=== PATIENT | male | born 1960 | race Caucasian/White ===

== ENCOUNTER 2025-04-23 10:17 | Outpatient (CLI) | payer MEDICARE, MEDICAID ==
[2025-04-23 11:22] VITALS: PULSE 79; RESP 14; O2SAT 99
--- NOTE | 2025-04-23 15:28 | PROCEDURE NOTE - Respiratory ---
Procedure Note-Respiratory Providers to CC Copies To 1: LEONARDO AMBROSE MD Procedure Name: This is a spirometry study dated April 23, 2025. Spirometry measurements: The forced vital capacity is normal but the FEV1 is significantly reduced. The FEV1 ratio is also significantly reduced. All of the measured flow rates show reduction. Bronchodilator was not administered as part of the study. Conclusion: This study is abnormal. There is evidence for obstructive ventilatory defect in the moderately severe category. This indicates the diagnosis of smoking-related COPD. We have no previous studies for comparison. Regular daily use of bronchodilator medication may help this patient. Complete abstinence from cigarette smoking is recommended. NORMA LUGO MD Apr 23, 2025 15:28
== END 2025-04-23 23:59 | disposition home or self-care (01) ==
LOC: RT 10:17
PROVIDERS: ATTEND Family Medicine
DX: R06.02 Shortness of breath (principal); R06.2 Wheezing
CPT/HCPCS: 94010; 94760

== ENCOUNTER 2025-06-02 07:24 | Day surgery (SDC) | payer MEDICARE, MEDICAID ==
[2025-06-02] VITALS (8 sets, daily range): BP systolic 83–129; BP diastolic 51–86; PULSE 61–76; RESP 12–18; TEMP 96.4; O2SAT 97–100
[~2025-06-02] VITALS: Ht 172.7 cm; Wt 61.3 kg
[~2025-06-02 07:24] MED LIST: ACLI400A2 INH; ATEN25TA2 PO; CARV12.549 PO; DOCUMENT DATE & TIME OF BETA-BLOCKER PO ONE; LIDOcaine 2% Viscous 15ml cup MM ONE; LISI20TA28 PO; METH-375 PO; TRAZ-256 PO; simethicone 40mg/0.6ml oral drops 15ml PO ONE
[2025-06-02] MEDS: ringers solution, lacted 1,000 ML IV SCH (08:04)
[2025-06-02] MEDS ORDERED: LIDOcaine 2% Viscous 15ml cup ONE (08:35)
[2025-06-02] MEDS ORDERED: MIDAZolam 1 MG/ML 5ML VIAL ONE (09:09)
[2025-06-02] MEDS ORDERED: fentaNYL/PF 50MCG/1 ML 2ML syringe ONE (09:09)
--- NOTE | 2025-06-03 16:07 | PATHOLOGY REPORT ---
[facility] [address] [place] [address] SURGICAL PATHOLOGY REPORT CaseNumber: [id number] Surgeon:Sharmin Matson M.D. CLINICAL INFORMATION CLINICAL INFORMATION: Dysphagia. DIAGNOSIS DIAGNOSIS: STOMACH, ANTRUM; BIOPSY - NO SIGNIFICANT HISTOLOGIC ABNORMALITY - NEGATIVE FOR INTESTINAL METAPLASIA. - NEGATIVE FOR H. PYLORI BY IMMUNOPEROXIDASE STUDY. - NEGATIVE FOR DYSPLASIA/NEOPLASIA. MICROSCOPIC DESCRIPTION MICROSCOPIC DESCRIPTION: One H&E stained slide is examined. Present is gastric mucosa with well-developed specialized compartment - no evidence of atrophy. There is no significant inflammatory infiltrate including active inflammation active inflammation. There is no intestinal metaplasia by routine light microscopy and no dysplasia/neoplasia. Immunoperoxidase study for H. pylori does not highlight organisms. GROSS DESCRIPTION GROSS DESCRIPTION: Received in a container of formalin labeled with the patient's name, number, and "antrum BX" are 2 pieces of lima tissue 0.5 x 0.1 x 0.1 and 0.6 x 0.1 x 0.1 cm. The specimen is entirely submitted as A1. The time at which the specimen was removed was 921. The time at which the specimen was placed in formalin was 921. Electronically signed by: Nixon Mansfield M.D. 06/03/2025 3:39:00 PM
== END 2025-06-02 10:30 | disposition home or self-care (01) ==
LOC: PAS 07:24
PROVIDERS: ATTEND Internal Medicine Gastroenterology
DX: R13.10 Dysphagia, unspecified (principal); K31.89 Other diseases of stomach and duodenum; E05.90 Thyrotoxicosis, unspecified without thyrotoxic crisis or storm; I10 Essential (primary) hypertension; J44.9 Chronic obstructive pulmonary disease, unspecified; Z87.891 Personal history of nicotine dependence; Z98.890 Other specified postprocedural states
CPT/HCPCS: 43239; 82948; A4620; J2250; J3010; J7120; Z7512; Z7610; 99152

== ENCOUNTER 2025-06-09 07:30 | Day surgery (SDC) | payer MEDICARE, MEDICAID ==
[2025-06-09] VITALS (8 sets, daily range): BP systolic 87–101; BP diastolic 53–76; PULSE 64–75; RESP 12–16; TEMP 97.6; O2SAT 97–100
[~2025-06-09] VITALS: Ht 172.7 cm; Wt 61.1 kg
[~2025-06-09 07:30] MED LIST changes: -DOCUMENT DATE & TIME OF BETA-BLOCKER PO ONE; -LIDOcaine 2% Viscous 15ml cup MM ONE; +ringers solution, lacted 1,000 ML IV SCH; -simethicone 40mg/0.6ml oral drops 15ml PO ONE
[2025-06-09] MEDS ORDERED: midazolam 1 mg/ML 2ml injection ONE (09:26)
[2025-06-09] MEDS ORDERED: propofol inj 20 ML IV ONE ×2 (09:40→09:51)
--- NOTE | 2025-06-10 10:39 | PATHOLOGY REPORT ---
[facility] [address] [place] [address] SURGICAL PATHOLOGY REPORT CaseNumber: [id number] Surgeon:Sharmin Matson M.D. CLINICAL INFORMATION CLINICAL INFORMATION: Screening. 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 There are areas involved by adenomatous changes that measure up to 0.8 cm in greatest dimension. There are no features of high-grade dysplasia or malignancy. GROSS DESCRIPTION GROSS DESCRIPTION: Received in a container of formalin labeled with the patient's name, number, and "sigmoid polyp BX"is a 0.8 x 0.5 x 0.4 cm polypoid piece of lima tissue. The specimen is bisected. The specimen is entirely submitted as A1. The time at which the specimen was removed was 929. The time at which the specimen was placed in formalin was 930. Electronically signed by: Kirk Horn M.D. 06/10/2025 10:08:00 AM
== END 2025-06-09 10:36 | disposition home or self-care (01) ==
LOC: PAS 07:30
PROVIDERS: ATTEND Internal Medicine Gastroenterology
DX: Z12.11 Encounter for screening for malignant neoplasm of colon (principal); D12.5 Benign neoplasm of sigmoid colon; K63.5 Polyp of colon; K57.30 Diverticulosis of large intestine without perforation or abscess without bleeding; I10 Essential (primary) hypertension; J44.9 Chronic obstructive pulmonary disease, unspecified; E05.90 Thyrotoxicosis, unspecified without thyrotoxic crisis or storm; Z87.891 Personal history of nicotine dependence; Z79.899 Other long term (current) drug therapy
CPT/HCPCS: 45385; 82948; J2250; J2704; J7120; Z7512; Z7610